=== PATIENT | male | born 1980 ===

== ENCOUNTER 2019-02-03 12:00 | Emergency (ER) ==
--- OUTSIDE RECORDS SUMMARY | 2019-02-03 12:18 | XMS REPORT | Continuity of Care Document ---
:1980 External Reference #:[id number] Author Name Charles Aaron, DO FACC (transmitted by agent of provider Sonia Garcia) Address [address] [place] [address] Care Team Providers Name Role Phone Kari Farooq NP - Nurse Care Team Information Delivery Person [phone] Practitioner Blank Ruff M.D. - Internal Care Team Information Delivery Person [phone] Medicine Problems Active Problems Provider Date Irritable bowel syndrome Onset: Social History Type Date Description Comments Sex Unknown ETOH Use Occasionally consumed wine in the past Tobacco Use Start: Unknown Patient has never smoked Smoking Status Reviewed: 12/14/18 Patient has never smoked Allergies, Adverse Reactions, Alerts Active Allergies Reaction Severity Comments Date Barium Sulfate 12/14/2018 Medications Active Medications SIG Qnty Indications Ordering Provider Date Peppermint Oil 80 mg Unknown Oil Zoloft 1 by mouth every Unknown 25mg Tablets day Lorazepam take 0.25 mg as Unknown 0.5mg Tablets needed Immunizations Description No Information Available Vital Signs Date Vital Result Comment 12/14/2018 3:45pm Height 74 inches 6'2" Weight 174.00 lb with shoes Heart Rate 74 /min BP Systolic 126 mmHg Ra sitting BP Diastolic 70 mmHg Ra sitting BP Systolic Sitting 124 mmHg LA BP Diastolic Sitting 82 mmHg LA BP Systolic Standing 122 mmHg LA BP Diastolic Standing 80 mmHg LA BMI (Body Mass Index) 22.3 kg/m2 Ejection Fraction NONE Results Description No Information Available Procedures Date Code Description Status 12/14/2018 38512 EKG Tracing & Interpretation Completed Medical Devices Description No Information Available Encounters Type Date Location Provider Dx Diagnosis Office Visit 12/14/2018 [facility] Charles Aaron, R07.9 Chest pain, 4:00p Of [employer] DO FACC unspecified R06.02 Shortness of breath Assessments Date Code Description Provider 12/14/2018 R07.9 Chest pain, unspecified DO QUE DesouzaC 12/14/2018 R06.02 Shortness of breath DO QUE DesouzaC Plan of Treatment Future Appointment(s):01/13/2019 10:30 am - Charles Aaron DO FACC at [facility]01/13/2019 10:00 am - Ica ECHO Schedule at [facility]12/14/2018 - Charles Aaron DO FACCR07.9 Chest pain, unspecifiedNew Orders:Stress Test, Exercise Echocardiogram, Scheduled: 01/13/19Comments:If not already done in the past, have your PCP check your cholesterol at some point.Follow up:f/u prnR06.02 Shortness of breath Functional Status Description No Information Available Mental Status Description No Information Available Referrals Description No Information Available
--- OUTSIDE RECORDS SUMMARY | 2019-02-03 12:18 | XMS REPORT | Summary of Care ---
:1980 Author Organization [facility] Address [address] [place] [address] Care Team Providers Name Role Phone Blank Ruff MD Primary Care Provider Reason for Visit Reason Comments New Patient IBS Encounter Details Date Type Department Care Team Description 01/12/2019 Office Visit Marcy Reynolds MD Esophageal spasm Gastroenterology/Hepa [address] [facility] (Primary Dx) [place] [address] [address] [phone] [place] [address] [phone] Allergies Active Allergy Reactions Severity Noted Date Comments Sulfa Antibiotics Unknown Reaction 01/12/2019 documented as of this encounter (statuses as of 01/13/2019) Medications Medication Sig Dispensed Refills Start Date End Date Status PEPPERMINT OIL PO Take by mouth. 0 Active sertraline (ZOLOFT) 25 Take 25 mg by 0 Active MG Oral Tab mouth DAILY. Omeprazole 40 MG Oral Take 1 Cap by 30 Cap 0 01/12/2019 Active CAPSULE DELAYED RELEASE mouth DAILY. documented as of this encounter (statuses as of 01/13/2019) Active Problems Problem Noted Date Chest pain 12/04/2018 Shoulder joint pain 12/04/2018 Irritable bowel syndrome with diarrhea 12/04/2018 documented as of this encounter (statuses as of 01/13/2019) Social History Tobacco Use Types Packs/Day Years Used Date Never Smoker Alcohol Use Drinks/Week oz/Week Comments Not Currently Sex Assigned at Date Recorded Not on file Job Start Date Occupation Industry Not on file Not on file Not on file Travel History Travel Start Travel End No recent travel history available. documented as of this encounter Last Filed Vital Signs Vital Sign Reading Time Taken Comments Blood Pressure 132/86 01/12/2019 2:30 PM EDT Pulse 72 01/12/2019 2:30 PM EDT Temperature 36.1 01/12/2019 2:30 PM C (96.9 EDT F) Respiratory Rate - - Oxygen Saturation 98% 01/12/2019 2:30 PM EDT Inhaled Oxygen Concentration - - Weight 81.6 kg (179 lb 14.4 oz) 01/12/2019 2:30 PM EDT Height 188 cm (6' 2") 01/12/2019 2:30 PM EDT Body Mass Index 23.1 01/12/2019 2:30 PM EDT documented in this encounter Patient Instructions Patient InstructionsKiMarcy harden MD - 01/12/2019 2:40 PM EDT1. Let's do trial of omeprazole 40 mg daily for 2-4 weeks. Let me know how this is going. If there 'sno improvement, we can discuss trial of a calcium channel louis like diltiazem or tricyclic antidepressant called amytriptiline at a low dose. 2. EGuthrie: let me know how things are going in 2-4 weeks, and we can decide on next best step. Marcy Gonzales MD Esophageal Spasm WHAT YOU NEED TO KNOW: Esophageal spasm is a sudden, painful tightening of your lower esophagus. Your esophagus is the tubethat food and liquids pass through from your mouth to your stomach. You may have trouble when you swallow. Food may get stuck in your esophagus. You may also have pain in your chest and heartburn. DISCHARGE INSTRUCTIONS: Medicines: Ask about these and other medicines you may be given: Pain medicine: This medicine helps take away or decrease pain caused by the spasms. Smooth muscle relaxants: This medicine may help your muscles and esophagus relax so it is easier for you to swallow. It may also decrease your pain and trouble swallowing. Proton pump inhibitors: This medicine may help reduce stomach acid and prevent heartburn. Take your medicine as directed. Call your healthcare provider if you think your medicine is not helping or if you have side effects. Tell him if you are allergic to any medicine. Keep a list of the medicines, vitamins, and herbs you take. Include the amounts, and when and why you take them. Bring the list or the pill bottles to follow-up visits. Carry your medicine list with you in case of an emergency. Follow up with your healthcare provider as directed: Write down your questions so you remember to ask them during your visits. Contact your healthcare provider if: Your symptoms do not improve even with treatment. You have severe pain when you swallow. You lose weight without trying. You have questions about your condition or care. Return to the emergency department if: You are drooling or have trouble swallowing . You are choking, gagging, or vomiting. You have pain when you swallow. You have new or worse chest pain and shortness of breath. 2016 [employer]. Information is for End User's use only and may not be sold, redistributed or otherwise used for commercial purposes. All illustrations and images included in CareNotes are the copyrighted property of [employer]. or [employer]. The above information is an teachers aide only. It is not intended as medical advice for individual conditions or treatments. Talk to your doctor, nurse or pharmacist before following any medical regimen to see if it is safe and effective for you. documented in this encounter Progress Notes Marcy Gonzales MD - 01/12/2019 2:40 PM EDT PATIENT: Reyes Amin : 1980 DATE OF SERVICE: 01/12/2019 REFERRING PRACTITIONER: Blank Ruff PRIMARY CARE PROVIDER: Blank Ruff CHIEF COMPLAINT: Diarrhea, bloating, irritable bowel syndrome Subjective HISTORY OF PRESENT ILLNESS: Reyes Amin is a 38-y.o. male who presents as referral from Kari Farooq to establish care for irritable bowel syndrome. Patient recently moved to [facility] from [facility], where he was followed for his symptoms of diarrhea, bloating, attributed to irritable bowel syndrome. His main complaint is recent chest pains he has been having that are different from heartburn he has experienced in the past. He fees like these pains are related to "gas and bloating" that put pressure on his chest. He was in the ERand was ruled out for a cardiac cause of the discomfort, although he is also following up with a binding cementer french cord. He has seen some relief with peppermint oil. Prior to his move here, he underwent extensive gastroenterology workup with EGD/ colonoscopy. He denies dysphagia, fatigue, nausea, vomiting, melena, hematemesis, hematochezia,jaundice, fevers, chills, night sweats, weight loss, easy bruising , chest pain, shortness of breath, dysuria, hematuria, pyuria, joint pains, acholic stools, dark urine or systemic pruritis. Current Outpatient Medications Medication Sig PEPPERMINT OIL PO Take by mouth. No current facility-administered medications for this visit. Allergies no known allergies REVIEW OF SYSTEMS: All remaining review of systems was negative except for as noted in the history of present illness/subjective. Objective PHYSICAL EXAMINATION: VITALS: GENERAL: alert, oriented, no acute distress. HEENT: No scleral icterus, MMM Psych: Affect normal Neck: no lymphadenopathy LUNGS: clear to auscultation bilaterally. HEART: regular rhythm, no murmurs, no gallops, no rubs. ABDOMEN: general exam: soft, non-tender, non-distended, without masses or organomegaly, normal active bowel sounds, Bui's sign negative. Extrmities: no edema Skin: clear Neuro: gait normal, a&o x 3 RECTAL: exam deferred. IMPRESSION: Irritable bowel syndrome, possible esophageal spasm. I explained to patient at length that most common cause of esophageal spasm is actually acid reflux, and the most conservative initial route may be a short trial of PPI. Plan PLAN: 1. We can also consider more extensive testing with esophageal manometry and/or barium swallow. Other potential therapies include low dose diltiazem or visceral pain modulator like low dose amitryptiline (10-20 mg) QHS. Follow up: Schedule follow-up here as needed if symptoms worsen. Author: Marcy Gonzales MD 01/12/2019 12:55 documented in this encounter Plan of Treatment Health Maintenance Due Date Last Done Comments DEPRESSION SCREENING 1992 HIV SCREENING 1995 INFLUENZA VACCINE (#1) 2018 HPV IMMUNIZATION SERIES Aged Out No longer eligible based on patient's age to complete this topic MENINGOCOCCAL VACCINE IMM Aged Out No longer eligible based on patient's age to complete this topic PNEUMOCOCCAL 0-64 YRS Aged Out No longer eligible based on patient's age to complete this topic documented as of this encounter Results Not on filedocumented in this encounter Visit Diagnoses Diagnosis 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
== END 2019-02-03 12:08 | disposition left against medical advice (07) ==
LOC: UCCORT 12:00
DX: M79.602 Pain in left arm (principal); M79.601 Pain in right arm; Z53.21 Procedure and treatment not carried out due to patient leaving prior to being seen by health care provider